=== PATIENT | female | born 1940 ===

== ENCOUNTER 2018-06-27 11:02 | Inpatient (IN) ==
[2018-06-27] MEDS ORDERED: Sod Chloride 0.9% Inj 1,000 ML IV.CONT SCH (13:00)
[2018-06-27] MEDS ORDERED: Morphine Inj 4 MG/ML Vial IV.PUSH ONE (13:00)
[2018-06-27] MEDS ORDERED: Aluminum/Magnesium/Simethacone Susp 30 ML UDC PO ONE (13:00)
[2018-06-27] MEDS ORDERED: Famotidine PF Inj 20 MG/2 ML Vial IV.PUSH ONE (13:00)
--- NOTE | 2018-06-27 13:07 | ED ---
HPI General Chief Complaint: Abdominal Pain Stated Complaint: ABD PAIN Source: patient Mode of arrival: ambulatory Limitations: no limitations History of Present Illness HPI narrative: The patient is a 77-year-old female who presents to the emergency department for abdominal pain. The patient developed abdominal pain last night after eating tomato sauce. The abdominal pain is located epigastrium , migrates the right upper quadrant, associated with nausea, vomiting, and pain. She denies any diarrhea. The patient's previous abdominal surgeries include hysterectomy and section. She denies any fever, chills, or sweats. The patient denies any acute chest pain, shortness of breath, or new cough. Symptoms are moderate, exacerbated after eating tomato sauce, and there are currently no alleviating factors. The patient denies any dysuria, frequency , or urgency. MD complaint: abdominal pain Onset (ago): hour(s) Pain Consistency: constant Location: epigastric Severity: moderate Severity scale (1-10): 7 Quality: stabbing and burning Radiation: RUQ Migration to: RUQ Relieving factors: eating Exacerbating factors: nothing Associated symptoms: nausea and vomiting Related Data Patient : No Home Medications Medication Instructions Recorded Confirmed amlodipine 10 mg PO DAILY 06/27/18 06/27/18 lisinopril 10 mg PO DAILY 06/27/18 06/27/18 pantoprazole [Protonix] 40 mg PO DAILY 06/27/18 06/27/18 pravastatin 40 mg PO DAILY 06/27/18 06/27/18 Allergies Allergy/AdvReac Type Severity Reaction Status Date / Time No Known Allergies Allergy Unverified 06/27/18 11:56 Review of Systems ROS: all other systems reviewed are negative [facility] Medical History Medical History Hx of hysterectomy (Acute) History of uterine fibroid (Acute) History of high cholesterol (Acute) Hx of gastroesophageal reflux (GERD) (Acute) Hx of primary hypertension (Acute) Social History Social History Substance History: No History of Abuse Second Hand Smoke Exposure: No Smoking Status: Never smoker How Often Do You Have a Drink Containing Alcohol: Never Recent Travel in [facility] within the Last 8 Weeks: No Recent Out of Country Travel within the Last 8 Weeks: No Immunization History Tetanus Immunization: Unsure Hx Influenza Vaccine This Season: No Exam Narrative Exam Narrative: GENERAL: Awake, alert, pleasant 77-year-old female who appears her stated age and is in no acute respiratory distress. SKIN: Focused skin assessment warm/dry. HEAD: Atraumatic. Normocephalic. EYES: No injection or drainage per ENT: No nasal bleeding or discharge. Mucous membranes pink and moist. NECK: Trachea midline. No JVD. CARDIOVASCULAR: Regular rate and rhythm. No murmur appreciated. RESPIRATORY: No accessory muscle use. Clear to auscultation. Breath sounds equal bilaterally. GASTROINTESTINAL: Abdomen soft, epigastric tenderness and right upper quadrant abdominal tenderness. No guarding or rigidity. MUSCULOSKELETAL: No obvious deformities. No clubbing. No cyanosis. No edema. NEUROLOGICAL: Awake and alert. No obvious cranial nerve deficits. Motor grossly within normal limits. Normal speech. PSYCHIATRIC: Appropriate mood and affect; insight and judgment normal. Course Initial Documented Vital Signs Temperature 98.6 F 06/27/18 11:53 Pulse Rate 80 06/27/18 11:53 Respiratory Rate 16 06/27/18 11:53 Blood Pressure 162/77 H 06/27/18 11:53 Pulse Oximetry 93 L 06/27/18 11:53 Last Documented Vital Signs Temperature 98.6 F 06/27/18 11:53 Pulse Rate 82 06/27/18 13:36 Respiratory Rate 16 06/27/18 13:36 Blood Pressure 137/70 06/27/18 13:36 Pulse Oximetry 98 06/27/18 13:36 Medical Decision Making MDM Narrative Medical decision making narrative: IV was established, labs are drawn and sent, and the patient was placed on cardiac telemetry monitoring and continuous pulse oximetry monitoring. The patient was administered morphine, Zofran, Pepcid, GI cocktail, placed on IV fluids. Ultrasound of the gallbladder was ordered. The patient CBC, CMP, lipase are unremarkable. Lactic acid is within normal limits. The patient's ultrasound does reveal debris and a distended gallbladder concerning for gallbladder mass. The patient was reevaluated he continues to have right upper quadrant abdominal pain. I paged the on-call general surgeon, Dr. London. I discussed the patient with Dr. Juvenal Pereira, who states the patient can be admitted to the medical service with a routine consultation to Dr. London for evaluation. I discussed the findings with the patient, she continues to have pain, therefore, I believe it is reasonable for 23 hour observation for further evaluation. The common bile duct was slightly enlarged at 0.81, however, the patient is almost 79 and with normal LFTs and normal lipase I doubt stone passage. Medical Screen Exam Complete: Yes Emergency Medical Condition: Yes Differential Diagnosis Differential Diagnosis: Differential diagnosis includes gastritis, peptic ulcer disease, cholecystitis, choledocholithiasis, biliary colic, pancreatitis, GERD, esophageal spasm, atypical [place], perforated viscus. Lab Data Result diagrams: 06/27/18 13:00 06/27/18 13:00 Lab Results 06/27/18 06/27/18 06/27/18 Range/Units 13:00 13:00 13:00 CBC w Diff Auto diff final WBC 9.7 (4.0-11.0) th/mm3 RBC 4.80 (4.00-5.30) mil/mm3 Hgb 14.1 (11.6-15.3) gm/dL Hct 42.3 (35.0-46.0) % MCV 88.2 (80.0-100.0) fL MCH 29.4 (27.0-34.0) pg MCHC 33.3 (32.0-36.0) % RDW 14.7 (11.6-17.2) % Plt Count 356 (150-450) th/mm3 MPV 7.7 (7.0-11.0) fL Neut % (Auto) 91.2 H (16.0-70.0) % Lymph % (Auto) 7.3 L (9.0-44.0) % [place] % (Auto) 1.1 (0.0-8.0) % Eos % (Auto) 0.1 (0.0-4.0) % Baso % (Auto) 0.3 (0.0-2.0) % Neut # (Auto) 8.9 H (1.8-7.7) th/mm3 Lymph # (Auto) 0.7 L (1.0-4.8) th/mm3 [place] # (Auto) 0.1 (0.0-0.9) th/mm3 Eos # (Auto) 0.0 (0.0-0.4) th/mm3 Baso # (Auto) 0.0 (0.0-0.2) th/mm3 WBC Differential . Differential Comment . Sodium 139 (136-145) meq/L Potassium 3.6 (3.5-5.1) meq/L Chloride 106 (98-107) meq/L Carbon Dioxide 26.5 (21.0-32.0) meq/L Anion Gap 7 (5-15) meq/L BUN 18 (7-18) mg/dL Creatinine 0.73 (0.50-1.00) mg/dL Estimated GFR 77 L (>89) mL/min Random Glucose 149 H (74-106) mg/dL Lactic Acid (0.4-2.0) mmol/L Calcium 8.8 (8.5-10.1) mg/dL Total Bilirubin 0.6 (0.2-1.0) mg/dL AST 40 H (15-37) U/L ALT 32 (10-53) U/L Alkaline Phosphatase 111 (45-117) U/L Total Creatine Kinase 69 (26-192) U/L Troponin I 0.03 (0.02-0.05) ng/mL Total Protein 8.3 H (6.4-8.2) g/dL Albumin 4.0 (3.4-5.0) g/dL Lipase 78 (73-393) U/L Ur Collection Type Urine Color (Yellw/Straw) Urine Clarity (Clear) Urine pH (5.0-8.5) Ur Specific [place] (1.002-1.035) Urine Protein (Neg-Trace) mg/dL Urine Glucose (UA) (Negative) mg/dL Urine Ketones (Negative) mg/dL Urine Occult Blood (Negative) Urine Nitrate (Negative) Urine Bilirubin (Negative) Urine Urobilinogen (Less than 2) mg/dL Ur Leukocyte Esterase (Negative) Urine WBC (0-5) /hpf Ur Squamous Epith Cells (0-5) /hpf Ur Transition Epith Cell (None) /hpf Amorphous Sediment (None) /hpf Micro UA Comment Ur Microscopic Review Urine Culture Comments Urine Collection Time hours 06/27/18 06/27/18 Range/Units 13:10 13:10 CBC w Diff WBC (4.0-11.0) th/mm3 RBC (4.00-5.30) mil/mm3 Hgb (11.6-15.3) gm/dL Hct (35.0-46.0) % MCV (80.0-100.0) fL MCH (27.0-34.0) pg MCHC (32.0-36.0) % RDW (11.6-17.2) % Plt Count (150-450) th/mm3 MPV (7.0-11.0) fL Neut % (Auto) (16.0-70.0) % Lymph % (Auto) (9.0-44.0) % [place] % (Auto) (0.0-8.0) % Eos % (Auto) (0.0-4.0) % Baso % (Auto) (0.0-2.0) % Neut # (Auto) (1.8-7.7) th/mm3 Lymph # (Auto) (1.0-4.8) th/mm3 [place] # (Auto) (0.0-0.9) th/mm3 Eos # (Auto) (0.0-0.4) th/mm3 Baso # (Auto) (0.0-0.2) th/mm3 WBC Differential Differential Comment Sodium (136-145) meq/L Potassium (3.5-5.1) meq/L Chloride (98-107) meq/L Carbon Dioxide (21.0-32.0) meq/L Anion Gap (5-15) meq/L BUN (7-18) mg/dL Creatinine (0.50-1.00) mg/dL Estimated GFR (>89) mL/min Random Glucose (74-106) mg/dL Lactic Acid 1.8 (0.4-2.0) mmol/L Calcium (8.5-10.1) mg/dL Total Bilirubin (0.2-1.0) mg/dL AST (15-37) U/L ALT (10-53) U/L Alkaline Phosphatase (45-117) U/L Total Creatine Kinase (26-192) U/L Troponin I (0.02-0.05) ng/mL Total Protein (6.4-8.2) g/dL Albumin (3.4-5.0) g/dL Lipase (73-393) U/L Ur Collection Type Clean catch Urine Color Yellow (Yellw/Straw) Urine Clarity Slightly cloudy (Clear) Urine pH 7.5 (5.0-8.5) Ur Specific [place] 1.015 (1.002-1.035) Urine Protein Trace (Neg-Trace) mg/dL Urine Glucose (UA) Negative (Negative) mg/dL Urine Ketones 15 H (Negative) mg/dL Urine Occult Blood Negative (Negative) Urine Nitrate Negative (Negative) Urine Bilirubin Negative (Negative) Urine Urobilinogen 1.0 (Less than 2) mg/dL Ur Leukocyte Esterase Negative (Negative) Urine WBC 0-5 (0-5) /hpf Ur Squamous Epith Cells 6-10 H (0-5) /hpf Ur Transition Epith Cell 1-5 H (None) /hpf Amorphous Sediment Moderate H (None) /hpf Micro UA Comment Culture not ind Ur Microscopic Review Microscopic reviewed Urine Culture Comments Culture not ind Urine Collection Time 1320 hours Imaging Data Radiologist's impression: Gallbladder Ultrasound 06/27/18 13:00 CONCLUSION: 1. Markedly distended gallbladder with evidence of internal debris and thickening in the fundus. Gallbladder mass needs to be excluded. 2. Mildly dilated common bile duct 3. No other significant abnormality. Discharge Plan Discharge Disposition Patient Disposition: 30 Still Patient Discharge Condition Condition: Stable Discharge Details Diagnosis: Abdominal pain, acute, right upper quadrant Physicians Team ED Provider: Ray Love Primary Care Provider: Simran Zaragoza Rxs /Orders / Referrals /Forms Prescriptions: No Action pravastatin 40 mg Tablet 40 mg PO DAILY RF: 0 amlodipine 10 mg Tablet 10 mg PO DAILY RF: 0 pantoprazole [Protonix] 40 mg Tablet,Delayed Release (Dr/Ec) 40 mg PO DAILY RF: 0 lisinopril 10 mg Tablet 10 mg PO DAILY RF: 0 Discharge Interventions Interventions: Vital Signs Last Done: 06/27/18 13:36 Status ED Status: Pending Admission
[2018-06-27 13:20] LABS: Baso % (Auto) 0.3 % (0.0-2.0); Eos % (Auto) 0.1 % (0.0-4.0); Hematocrit 42.3 % (35.0-46.0); Hemoglobin 14.1 gm/dL (11.6-15.3); Lymph # (Auto) 0.7 th/mm3 (1.0-4.8); Lymph % (Auto) 7.3 % (9.0-44.0); Mean Corpuscular HGB Conc 33.3 % (32.0-36.0); Mean Corpuscular Hemoglobin 29.4 pg (27.0-34.0); Mean Corpuscular Volume 88.2 fL (80.0-100.0); Mean Platelet Volume 7.7 fL (7.0-11.0); Mono # (Auto) 0.1 th/mm3 (0.0-0.9); Mono % (Auto) 1.1 % (0.0-8.0); Neut # (Auto) 8.9 th/mm3 (1.8-7.7); Neut % (Auto) 91.2 % (16.0-70.0); Platelet Count 356 th/mm3 (150-450); Red Cell Distribution Width 14.7 % (11.6-17.2); White Blood Count 9.7 th/mm3 (4.0-11.0)
[2018-06-27 13:21] LABS: Bilirubin,Urine Negative (Negative); Clarity,Urine Slightly Cloudy (Clear); Color,Urine Yellow (Yellw/Straw); Glucose,Urine (UA) Negative (Negative); Leukocyte Esterase,Urine Negative (Negative); Nitrite,Urine Negative (Negative); PH,Urine 7.5 (5.0-8.5); Specific Gravity,Urine 1.015 (1.002-1.035)
[2018-06-27 13:28] LABS: Collection Time,Urine 1320 hours
[2018-06-27 13:30] LABS: Amorphous Sediment,Urine Moderate /hpf; WBC,Urine 0-5 /hpf (0-5)
[2018-06-27 13:31] LABS: Chloride 106 meq/L (98-107); Potassium 3.6 meq/L (3.5-5.1); Sodium 139 meq/L (136-145)
[2018-06-27 13:34] LABS: Calcium 8.8 mg/dL (8.5-10.1)
[2018-06-27 13:35] LABS: Anion Gap 7 meq/L (5-15); Blood Urea Nitrogen 18 mg/dL (7-18); Carbon Dioxide 26.5 meq/L (21.0-32.0); Glucose,Random 149 mg/dL (74-106); Lipase 78 U/L (73-393)
[2018-06-27 13:38] LABS: Alanine Aminotransferase 32 U/L (10-53); Aspartate Aminotransferase 40 U/L (15-37); Glomerular Filtration Rate 77 mL/min (>89)
[2018-06-27 13:39] LABS: Total Protein 8.3 g/dL (6.4-8.2)
[2018-06-27 13:41] LABS: Alkaline Phosphatase 111 U/L (45-117); Troponin I 0.03 ng/mL (0.02-0.05)
--- NOTE | 2018-06-27 14:26 | US ---
EXAM DATE: 06/27/2018 2:18 PM EDT AGE/SEX: 77 years / Female INDICATIONS: Right upper quadrant pain. CLINICAL DATA: This is the patient's initial encounter. Patient reports that signs and symptoms have been present for 1 day and indicates a pain score of 5/10. MEDICAL/SURGICAL HISTORY: Hypercholesterolemia. Gastroesophageal reflux disease. Hypertension . Fibroids. Hysterectomy. COMPARISON: No prior exams available for comparison. MEASUREMENTS: Liver:__ 13.9 cm. Common Bile Duct:__ 8mm. FINDINGS: Liver: Normal echotexture without focal lesion or ductal dilatation. Portal Vein: Hepatopedal flow seen in portal vein. Common Duct: Mildly dilated. Gallbladder: The gallbladder is markedly distended measuring 15.6 cm in length. There is evidence of internal debris within the gallbladder. There is focal debris and thickening of the gallbladder fund us. Pancreas: The visualized portions are within normal limits Right Kidney: Normal echotexture and cortical thickness. No mass or hydronephrosis. Other: CONCLUSION: 1. Markedly distended gallbladder with evidence of internal debris and thickening in the fundus. Gal lbladder mass needs to be excluded. 2. Mildly dilated common bile duct 3. No other significant abnormality. Electronically signed by: Robin Sanchez MD 06/27/2018 2:24 PM EDT
[2018-06-27] MEDS ORDERED: Ampicillin/Sulbactam Inj 1,500 MG in Sodium Chloride 0.9% Inj 100 ML IV.SIG ONE (14:43)
[2018-06-27] MEDS ORDERED: Acetaminophen 325 MG Tablet PO PRN (15:36)
[2018-06-27] MEDS ORDERED: Morphine Inj 4 MG/ML Vial IV.PUSH PRN (15:38)
--- NOTE | 2018-06-27 15:47 | P.HPIM ---
History of Present Illness Primary Care Physician: Simran Zaragoza MD Chief Complaint: Abdominal pain History of Present Illness: The patient is a 77-year-old female with a past medical history of hypertension and hyperlipidemia who is presenting to the hospital with abdominal pain. The patient said that she has some food containing tomato sauce yesterday and she developed epigastric pain. She rated it as a 10 out of 10 in severity at the time and she says it is currently a 6 out of 10. She said she did have accompanying nausea and vomiting. She said she also ate some chicken, rice and beans last night. She has not eaten anything today. She is still nauseous. She says she has had this before. She says this abdominal pain comes and goes. She has not really been following with a doctor for it. She is currently hungry and looking forward to eating something. She would like to go home soon. Review of Systems All other systems reviewed negative except as stated in HPI PMFSH - History History Provided By: Patient, Family Member - Medical History Medical History: Medical History (Last Updated 06/27/18 @ 12:48 by Rozina Faith RN) Hx of hysterectomy (Acute) History of uterine fibroid (Acute) History of high cholesterol (Acute) Hx of gastroesophageal reflux (GERD) (Acute) Hx of primary hypertension (Acute) - Surgical History Surgical History: Surgical History (Last Updated 06/27/18 @ 15:43 by Jeferson Ruiz DO) H/O section - Family History Family History: Family History (Last Updated 06/27/18 @ 15:43 by Jeferson Ruiz DO) Other Patient denies significant medical history - Social History I have reviewed the patient's Social History: Yes - Tobacco History Second Hand Smoke Exposure: No Smoking Status: Never smoker - Alcohol History How Often Do You Have a Drink Containing Alcohol: Never - Substance Use History Substance History: No History of Abuse - Travel History Recent Travel in the [place] Within the Last 8 Weeks: No Recent Travel Out of the Country Within the Last 8 Weeks: No - Immunization History Tetanus Immunization: Unsure Hx Influenza Vaccine This Season: No Medications and Allergies Active Medications: Active Medications Acetaminophen (Tylenol) 650 mg PO Q4H PRN PRN Reason: Temp > 100.4 Amlodipine Besylate (Norvasc) 10 mg PO DAILY [place] Sodium Chloride (Ns Inj) 1,000 mls @ 125 mls/hr IV.CONT .Q8H [facility] Stop: 06/27/18 20:59 Last Admin: 06/27/18 13:21 Dose: 125 mls/hr Sodium Chloride (Ns Inj) 1,000 mls @ 100 mls/hr IV.CONT .Q10H [facility] Lisinopril (Prinivil) 10 mg PO DAILY [facility] Morphine Sulfate (Morphine Inj) 4 mg IV.PUSH Q4H PRN PRN Reason: BREAKTHROUGH PAIN Ondansetron HCl (Zofran Inj) 4 mg IV.PUSH Q6H PRN PRN Reason: NAUSEA OR VOMITING Oxycodone HCl (Roxicodone) 5 mg PO Q4H PRN PRN Reason: pain 3-10 Pantoprazole Sodium (Protonix) 40 mg PO DAILY [facility] Pravastatin Sodium (Pravachol) 40 mg PO DAILY [facility] Senna/Docusate Sodium (Corine-Colace) 1 tab PO BID [facility] Sodium Chloride (Ns Flush) 2 ml IV.FLUSH PRN PRN PRN Reason: FLUSH AFTER USING IV ACCESS Allergies Allergy/AdvReac Type Severity Reaction Status Date / Time No Known Allergies Allergy Unverified 06/27/18 11:56 Home Medications Medication Instructions Recorded Confirmed Type amlodipine 10 mg PO DAILY 06/27/18 06/27/18 History lisinopril 10 mg PO DAILY 06/27/18 06/27/18 History pantoprazole [Protonix] 40 mg PO DAILY 06/27/18 06/27/18 History pravastatin 40 mg PO DAILY 06/27/18 06/27/18 History Exam Vital signs: Vital Signs 06/27/18 11:53 06/27/18 13:36 Temperature 98.6 F Pulse Rate 80 82 Respiratory Rate 16 16 Blood Pressure 162/77 H 137/70 Pulse Oximetry 93 L 98 Intake & Output 06/26/18 06/27/18 06/27/18 18:59 06:59 18:59 Weight 74 kg Narrative: GENERAL: No distress. SKIN: Focused skin assessment warm/dry. HEAD: Atraumatic. Normocephalic. EYES: No injection or drainage per ENT: No nasal bleeding or discharge. Mucous membranes pink and moist. NECK: Trachea midline. No JVD. CARDIOVASCULAR: Regular rate and rhythm. No murmur appreciated. RESPIRATORY: No accessory muscle use. Clear to auscultation. Breath sounds equal bilaterally. GASTROINTESTINAL: Abdomen soft, epigastric tenderness and right upper quadrant abdominal tenderness. No guarding or rigidity. MUSCULOSKELETAL: No obvious deformities. No clubbing. No cyanosis. No edema. NEUROLOGICAL: Awake and alert. No obvious cranial nerve deficits. Motor grossly within normal limits. Normal speech. PSYCHIATRIC: Appropriate mood and affect; insight and judgment normal. Results - Labs CBC & Chem 7: 06/27/18 13:00 06/27/18 13:00 Labs: Short CBC 06/27/18 Range/Units 13:00 WBC 9.7 (4.0-11.0) th/mm3 Hgb 14.1 (11.6-15.3) gm/dL Hct 42.3 (35.0-46.0) % Plt Count 356 (150-450) th/mm3 BMP 06/27/18 13:00 Sodium 139 Potassium 3.6 Chloride 106 Carbon Dioxide 26.5 BUN 18 Creatinine 0.73 Calcium 8.8 Cardiac Enzymes 06/27/18 Range/Units 13:00 Total Creatine Kinase 69 (26-192) U/L Troponin I 0.03 (0.02-0.05) ng/mL Liver Function 06/27/18 Range/Units 13:00 Total Bilirubin 0.6 (0.2-1.0) mg/dL AST 40 H (15-37) U/L ALT 32 (10-53) U/L Alkaline Phosphatase 111 (45-117) U/L Albumin 4.0 (3.4-5.0) g/dL Urine 06/27/18 Range/Units 13:10 Urine Color Yellow (Yellw/Straw) Urine Clarity Slightly cloudy (Clear) Urine pH 7.5 (5.0-8.5) Ur Specific [place] 1.015 (1.002-1.035) Urine Protein Trace (Neg-Trace) mg/dL Urine Glucose (UA) Negative (Negative) mg/dL - Imaging Impressions Gallbladder Ultrasound 06/27/18 13:00 CONCLUSION: 1. Markedly distended gallbladder with evidence of internal debris and thickening in the fundus. Gallbladder mass needs to be excluded. 2. Mildly dilated common bile duct 3. No other significant abnormality. Caprini VTE Risk Assessment Caprini VTE Risk Assessment: Moderate/High Risk (score >= 2) Caprini Risk Assessment Model: Point Value = 1 Point Value = 2 Point Value = 3 Point Value = 5 Age 41-60 Minor surgery BMI > 25 kg/m2 Swollen legs Varicose veins or History of unexplained or recurrent spontaneous Oral contraceptives or hormone replacement Sepsis (< 1 month) Serious lung disease, including pneumonia (< 1 month) Abnormal pulmonary function Acute myocardial infarction Congestive heart failure (< 1 month) History of inflammatory bowel disease Medical patient at bed rest Age 61-74 Arthroscopic surgery Major open surgery (> 45 min) Laparoscopic surgery (> 45 min) Malignancy Confined to bed (> 72 hours) Immobilizing plaster cast Central venous access Age >= 75 History of VTE Family history of VTE Factor V Leiden Prothrombin [id number] Lupus anticoagulant Anticardiolipin antibodies Elevated serum homocysteine Heparin-induced thrombocytopenia Other congenital or acquired thrombophilia Stroke (< 1 month) Elective arthroplasty Hip, pelvis, or leg fracture Acute spinal cord injury (< 1 month) Prophylaxis Regimen: Total Risk Factor Score Risk Level Prophylaxis Regimen 0-1 Low Early ambulation 2 Moderate Order ONE of the following: *Sequential Compression Device (SCD) *Heparin 5000 units SQ BID 3-4 Higher Order ONE of the following medications: *Heparin 5000 units SQ TID *Enoxaparin/Lovenox 40 mg SQ daily (WT < 150 kg, CrCl > 30 mL/min) *Enoxaparin/Lovenox 30 mg SQ daily (WT < 150 kg, CrCl > 10-29 mL/min) *Enoxaparin/Lovenox 30 mg SQ BID (WT < 150 kg, CrCl > 30 mL/min) AND/OR *Sequential Compression Device (SCD) 5 or more Highest Order ONE of the following medications: *Heparin 5000 units SQ TID (Preferred with Epidurals) *Enoxaparin/Lovenox 40 mg SQ daily (WT < 150 kg, CrCl > 30 mL/min) *Enoxaparin/Lovenox 30 mg SQ daily (WT < 150 kg, CrCl > 10-29 mL/min) *Enoxaparin/Lovenox 30 mg SQ BID (WT < 150 kg, CrCl > 30 mL/min) AND *Sequential Compression Device (SCD) Assessment and Plan - Plan Abdominal pain Imaging indicative of distended gallbladder, mass needs to be excluded. -surgical consult pending. -pain control with a bowel regimen. -antiemetics as needed. -continue IV Unasyn. -NPO with IVFs for now. HTN Blood pressure slightly elevated. -resume home meds. -pain control. Hyperglycemia Likely a stress reaction. -check an A1c. PPx: SCDs
--- NOTE | 2018-06-27 16:20 | P.CONGS ---
[facility] Gen Surgery Consult Note Consult date: 06/27/18 Reason for consult: abdominal pain Requesting physician: Ray Love Narrative: This is a 77 year old female with a past medical history of GERD, hypertension, dyslipidemia and uterine fibroids who presented to the ED today with complaints of abdominal pain with associated nausea and vomiting. The patient denies any chills or fevers. The patient reports that she last ate chicken, rice and beans about 2100 last night and shortly after that the pain developed. She has not had anything to eat or drink today. Her laboratory work is unremarkable except for a mildly elevated AST. An US for the gallbladder was obtained which shows a distended gallbladder with a mildly dilated common bile duct. Patient denies use of oral anticoagulations. A General Surgery consultation has been requested. Review of Systems All other systems reviewed negative except as stated in [facility] - History History Provided By: Patient, Family Member - Medical History Medical History: Medical History (Last Reviewed 06/27/18 @ 16:15 by CHRISS Beaulieu) Hx of hysterectomy (Acute) History of uterine fibroid (Acute) History of high cholesterol (Acute) Hx of gastroesophageal reflux (GERD) (Acute) Hx of primary hypertension (Acute) - Surgical History Surgical History: Surgical History (Last Reviewed 06/27/18 @ 16:15 by CHRISS Beaulieu) H/O section - Family History Family History: Family History (Last Updated 06/27/18 @ 15:43 by Jeferson Ruiz DO) Other Patient denies significant medical history - Tobacco History Second Hand Smoke Exposure: No Smoking Status: Never smoker - Alcohol History How Often Do You Have a Drink Containing Alcohol: Never - Substance Use History Substance History: No History of Abuse - Travel History Recent Travel in the [place] Within the Last 8 Weeks: No Recent Travel Out of the Country Within the Last 8 Weeks: No - Immunization History Tetanus Immunization: Unsure Hx Influenza Vaccine This Season: No Medications and Allergies Allergies Allergy/AdvReac Type Severity Reaction Status Date / Time No Known Allergies Allergy Verified 06/27/18 20:32 Home Medications Medication Instructions Recorded Confirmed Type Advil 200 mg PO PRN PRN 06/27/18 06/27/18 History Aspir-81 1 mg PO DAILY 06/27/18 06/27/18 History amlodipine 10 mg PO DAILY 06/27/18 06/27/18 History lisinopril 10 mg PO DAILY 06/27/18 06/27/18 History pantoprazole [Protonix] 40 mg PO DAILY 06/27/18 06/27/18 History pravastatin 40 mg PO DAILY 06/27/18 06/27/18 History Active Medications: Active Medications Acetaminophen (Tylenol) 650 mg PO Q4H PRN PRN Reason: Temp > 100.4 Amlodipine Besylate (Norvasc) 10 mg PO DAILY [facility] Sodium Chloride (Ns Inj) 1,000 mls @ 100 mls/hr IV.CONT .Q10H [facility] Ampicillin Sodium/Sulbactam (Sodium 3 gm/ Sodium Chloride) 100 mls @ 200 mls/ hr IV.SIG Q6H [facility] Lisinopril (Prinivil) 10 mg PO DAILY [facility] Morphine Sulfate (Morphine Inj) 4 mg IV.PUSH Q4H PRN PRN Reason: BREAKTHROUGH PAIN Ondansetron HCl (Zofran Inj) 4 mg IV.PUSH Q6H PRN PRN Reason: NAUSEA OR VOMITING Oxycodone HCl (Roxicodone) 5 mg PO Q4H PRN PRN Reason: pain 3-10 Pantoprazole Sodium (Protonix) 40 mg PO DAILY [facility] Pravastatin Sodium (Pravachol) 40 mg PO DAILY [facility] Senna/Docusate Sodium (Corine-Colace) 1 tab PO BID [facility] Sodium Chloride (Ns Flush) 2 ml IV.FLUSH PRN PRN PRN Reason: FLUSH AFTER USING IV ACCESS Exam Vital signs: Vital Signs 06/27/18 11:53 06/27/18 13:36 Temperature 98.6 F Pulse Rate 80 82 Respiratory Rate 16 16 Blood Pressure 162/77 H 137/70 Pulse Oximetry 93 L 98 Intake & Output 06/26/18 06/27/18 06/27/18 18:59 06:59 18:59 Intake Total 100 / 100 Balance 100 / 100 Weight 74 kg Intake: IV 100 / 100 Unasyn Inj 1,500 MG In NS Inj 100 / 100 100 ML @ 200 mls/hr IV.SIG ONCE ONE Rx#:[id number] Narrative: GENERAL: Very pleasant 77 year old female resting in bed in no acute distress visiting with family members. SKIN: Warm and dry. HEAD: Atraumatic. Normocephalic. EYES: Pupils equal and round. No scleral icterus. No injection or drainage. ENT: No nasal bleeding or discharge. Mucous membranes pink and moist. NECK: Trachea midline. CARDIOVASCULAR: Regular rate and rhythm. RESPIRATORY: No accessory muscle use. Clear to auscultation. Breath sounds equal bilaterally. GASTROINTESTINAL: Abdomen soft, nondistended. RUQ tenderness with palpation. Well healed midline incision and low transverse incision. MUSCULOSKELETAL: Extremities without clubbing, cyanosis, or edema. No obvious deformities. NEUROLOGICAL: Awake and alert. No obvious cranial nerve deficits. Motor grossly within normal limits. Five out of 5 muscle strength in the arms and legs. Normal speech. PSYCHIATRIC: Appropriate mood and affect; insight and judgment normal. Results - Labs 06/29/18 06:50 06/29/18 06:50 Laboratory Results CBC w Diff Auto diff final 06/27/18 13:00 WBC 9.7 th/mm3 (4.0-11.0) 06/27/18 13:00 RBC 4.80 mil/mm3 (4.00-5.30) 06/27/18 13:00 Hgb 14.1 gm/dL (11.6-15.3) 06/27/18 13:00 Hct 42.3 % (35.0-46.0) 06/27/18 13:00 MCV 88.2 fL (80.0-100.0) 06/27/18 13:00 MCH 29.4 pg (27.0-34.0) 06/27/18 13:00 MCHC 33.3 % (32.0-36.0) 06/27/18 13:00 RDW 14.7 % (11.6-17.2) 06/27/18 13:00 Plt Count 356 th/mm3 (150-450) 06/27/18 13:00 MPV 7.7 fL (7.0-11.0) 06/27/18 13:00 Neut % (Auto) 91.2 % (16.0-70.0) H 06/27/18 13:00 Lymph % (Auto) 7.3 % (9.0-44.0) L 06/27/18 13:00 [place] % (Auto) 1.1 % (0.0-8.0) 06/27/18 13:00 Eos % (Auto) 0.1 % (0.0-4.0) 06/27/18 13:00 Baso % (Auto) 0.3 % (0.0-2.0) 06/27/18 13:00 Neut # (Auto) 8.9 th/mm3 (1.8-7.7) H 06/27/18 13:00 Lymph # (Auto) 0.7 th/mm3 (1.0-4.8) L 06/27/18 13:00 [place] # (Auto) 0.1 th/mm3 (0.0-0.9) 06/27/18 13:00 Eos # (Auto) 0.0 th/mm3 (0.0-0.4) 06/27/18 13:00 Baso # (Auto) 0.0 th/mm3 (0.0-0.2) 06/27/18 13:00 WBC Differential . 06/27/18 13:00 Differential Comment . 06/27/18 13:00 Sodium 139 meq/L (136-145) 06/27/18 13:00 Potassium 3.6 meq/L (3.5-5.1) 06/27/18 13:00 Chloride 106 meq/L (98-107) 06/27/18 13:00 Carbon Dioxide 26.5 meq/L (21.0-32.0) 06/27/18 13:00 Anion Gap 7 meq/L (5-15) 06/27/18 13:00 BUN 18 mg/dL (7-18) 06/27/18 13:00 Creatinine 0.73 mg/dL (0.50-1.00) 06/27/18 13:00 Estimated GFR 77 mL/min (>89) L 06/27/18 13:00 Random Glucose 149 mg/dL (74-106) H 06/27/18 13:00 Lactic Acid 1.8 mmol/L (0.4-2.0) 06/27/18 13:10 Calcium 8.8 mg/dL (8.5-10.1) 06/27/18 13:00 Total Bilirubin 0.6 mg/dL (0.2-1.0) 06/27/18 13:00 AST 40 U/L (15-37) H 06/27/18 13:00 ALT 32 U/L (10-53) 06/27/18 13:00 Alkaline Phosphatase 111 U/L (45-117) 06/27/18 13:00 Total Creatine Kinase 69 U/L (26-192) 06/27/18 13:00 Troponin I 0.03 ng/mL (0.02-0.05) 06/27/18 13:00 Total Protein 8.3 g/dL (6.4-8.2) H 06/27/18 13:00 Albumin 4.0 g/dL (3.4-5.0) 06/27/18 13:00 Lipase 78 U/L (73-393) 06/27/18 13:00 Ur Collection Type Clean catch 06/27/18 13:10 Urine Color Yellow (Yellw/Straw) 06/27/18 13:10 Urine Clarity Slightly cloudy (Clear) 06/27/18 13:10 Urine pH 7.5 (5.0-8.5) 06/27/18 13:10 Ur Specific [place] 1.015 (1.002-1.035) 06/27/18 13:10 Urine Protein Trace mg/dL (Neg-Trace) 06/27/18 13:10 Urine Glucose (UA) Negative mg/dL (Negative) 06/27/18 13:10 Urine Ketones 15 mg/dL (Negative) H 06/27/18 13:10 Urine Occult Blood Negative (Negative) 06/27/18 13:10 Urine Nitrate Negative (Negative) 06/27/18 13:10 Urine Bilirubin Negative (Negative) 06/27/18 13:10 Urine Urobilinogen 1.0 mg/dL (Less than 2) 06/27/18 13:10 Ur Leukocyte Esterase Negative (Negative) 06/27/18 13:10 Urine WBC 0-5 /hpf (0-5) 06/27/18 13:10 Ur Squamous Epith Cells 6-10 /hpf (0-5) H 06/27/18 13:10 Ur Transition Epith Cell 1-5 /hpf (None) H 06/27/18 13:10 Amorphous Sediment Moderate /hpf (None) H 06/27/18 13:10 Micro UA Comment Culture not ind 06/27/18 13:10 Ur Microscopic Review Microscopic reviewed 06/27/18 13:10 Urine Culture Comments Culture not ind 06/27/18 13:10 Urine Collection Time 1320 hours 06/27/18 13:10 Impressions Gallbladder Ultrasound 06/27/18 13:00 CONCLUSION: 1. Markedly distended gallbladder with evidence of internal debris and thickening in the fundus. Gallbladder mass needs to be excluded. 2. Mildly dilated common bile duct 3. No other significant abnormality. - Imaging US - abdomen: report reviewed Assessment and Plan - Assessment (1) Abdominal pain, acute, right upper quadrant Code(s): R10.11 - Right upper quadrant pain Status: Inactive Plan: 77 year old female with RUQ pain; cholecystitis -Continue Unasyn -IVF -Pain control -Plan for laparoscopic cholecystectomy; possible open procedure; possible intraoperative cholangiogram this evening -Obtain consents -OR notified -Thank you for this consult; We will continue to follow - Plan Discussed Condition With: Dr. London MsFavian Ward+ many family members at the bedside - Attending Attestation patient seen at bedside abdominal pain acute cholecysititis plan for lap kenny discussed with anrp patient and saff The exam, history, and the medical decision-making described in the above note were completed with the assistance of the mid-level provider. I reviewed and agree with the findings presented. I attest that I had a [id number] encounter with the patient on the same day, and personally performed and documented my assessment and findings in the medical record.
[2018-06-27] MEDS: Sod Chloride 0.9% Inj 1,000 ML IV.CONT SCH (17:23)
[2018-06-27] MEDS ORDERED: Bupivacaine/Epinephrine PF Inj 0.5% 30 ML Vial ONE (19:25)
[2018-06-27] MEDS ORDERED: fentaNYL Citrate Inj 100 MCG/2 ML Ampul ONE (19:48)
[2018-06-27] MEDS ORDERED: Ampicillin/Sulbactam 3 GM Vial ONE (20:07)
--- NOTE | 2018-06-27 20:15 | P.OP ---
- Preoperative Diagnosis (1) Biliary colic - Postoperative Diagnosis (1) Biliary colic Date of procedure: 06/27/18 Anesthesia: GETA Surgeon: Geo London MD Estimated blood loss (mL): 5 Pathology: other (gallbladder) Operation and Findings: distended inflamed gallbladder
[2018-06-27] MEDS ORDERED: Lidocaine PF 1% Inj 5 ML Syringe INFILTRATN ONE (20:33)
[2018-06-27] MEDS ORDERED: Neostigmine Inj 5 MG/5 ML Syringe IV.PUSH ONE (20:33)
[2018-06-27] MEDS ORDERED: Famotidine PF Inj 20 MG/2 ML Vial ONE (21:48)
[2018-06-27 22:10] LABS: Hemoglobin A1c 6.2 % (4.3-6.0)
--- NOTE | 2018-06-27 22:16 | MP ---
cc: Geo London MD DATE OF OPERATION: 06/27/2018 PREOPERATIVE DIAGNOSIS: Symptomatic cholelithiasis with acute cholecystitis. POSTOPERATIVE DIAGNOSIS: Symptomatic cholelithiasis with acute cholecystitis. PROCEDURE PERFORMED: Laparoscopic cholecystectomy. SURGEON: Geo London MD WIRE STITCHER OPERATOR: See OR sheet. ANESTHESIA: GETA. IV FLUIDS: See anesthesia sheet. ESTIMATED BLOOD LOSS: 10 mL. DRAINS: None. SPECIMENS: None. WOUND CLASSIFICATION: Clean/contaminated. SPECIMENS: Gallbladder. COMPLICATIONS: None. FINDINGS: Distended gallbladder over 380 mL of bile containing gallbladder. Multiple very large gallstones. PATHOLOGY: Gallbladder sent for pathology. INDICATION: The patient is a 77-year-old female who presents with acute onset of abdominal pain. She had an ultrasound showing thickened gallbladder wall with gallstones and debris; therefore, decision was made for operative intervention including laparoscopic cholecystectomy. DETAILS OF PROCEDURE: The patient was taken to the operating suite, placed in supine position. He was prepped and draped in the usual sterile fashion after induction of general endotracheal anesthesia. A brief time out was done stating correct patient, procedure, surgical site, and we were all in agreement with this. Attention was directed to the umbilicus where local anesthetic was injected. Stab nayana incision made with an 11 blade. A Visiport 5 mm Optiview trocar was used to enter the abdomen safely. On cursory inspection, no evidence of injury. Small umbilical hernia containing some adhesion just inferior to the port site. Abdomen was insufflated to 15 mm of pneumoperitoneum. Ports were placed, one 12 mm epigastric, followed by two 5 mm right subcostal ports. The patient was placed in reverse Trendelenburg on the left. The gallbladder was identified and noted to be significantly distended, somewhat edematous. Endo needle was used to decompress gallbladder with over 300 mL of bile aspirated. Palpation of multiple large gallstones as well. The fundus was grasped and retracted cephalad. Cystic duct and cystic artery were dissected in the usual manner. Two clips were placed proximally in cystic artery and one distal. Endo Emanuel used to transect this. Two clips were placed proximal on the cystic duct and 1 distal. Endo Emanuel used to transect this. Smaller bleeding point was clipped with a 5 mm clip. Gallbladder was removed from gallbladder fossa with electro Bovie cautery. Mild bleeding. Hemostasis obtained with electro Bovie cautery as well as Wily. The gallbladder was removed and placed in the Endo Catch pouch and removed from the epigastric incision. The pneumoperitoneum was removed. The ports were removed. The epigastric fascia was closed with 0 Vicryl, followed by 4-0 Monocryl to all skin incision port sites. Sterile dressings were placed, including Mastisol and Steri-Strips. No complications. All lap and instrument counts were correct at the end of the procedure. The patient was extubated and taken to PACU. MD HINA Murillo/adolfo , 09:23 PM , 09:32 PM
[2018-06-27] MEDS: Senna/Docusate Sodium 8.6/50 MG Tablet PO SCH (22:29)
[2018-06-27] MEDS: Ampicillin/Sulbactam Inj 3 GM in Sodium Chloride 0.9% Inj 100 ML IV.SIG SCH (22:30)
[2018-06-28] MEDS: Sod Chloride 0.9% Inj 1,000 ML IV.CONT SCH ×3 (01:11→14:37)
[2018-06-28] MEDS: Ampicillin/Sulbactam Inj 3 GM in Sodium Chloride 0.9% Inj 100 ML IV.SIG SCH ×4 (02:03→21:56)
[2018-06-28 06:38] LABS: Baso % (Auto) 0.1 % (0.0-2.0); Eos % (Auto) 0.1 % (0.0-4.0); Hemoglobin 11.6 gm/dL (11.6-15.3); Lymph # (Auto) 0.5 th/mm3 (1.0-4.8); Lymph % (Auto) 5.2 % (9.0-44.0); Mean Corpuscular Hemoglobin 29.1 pg (27.0-34.0); Mean Corpuscular Volume 88.2 fL (80.0-100.0); Mono # (Auto) 0.3 th/mm3 (0.0-0.9); Mono % (Auto) 3.1 % (0.0-8.0); Neut # (Auto) 9.7 th/mm3 (1.8-7.7); Neut % (Auto) 91.5 % (16.0-70.0); Platelet Count 277 th/mm3 (150-450); Red Blood Count 3.97 mil/mm3 (4.00-5.30); Red Cell Distribution Width 14.7 % (11.6-17.2); White Blood Count 10.5 th/mm3 (4.0-11.0)
[2018-06-28 06:55] LABS: Chloride 110 meq/L (98-107); Potassium 3.8 meq/L (3.5-5.1); Sodium 143 meq/L (136-145)
[2018-06-28 07:11] LABS: Alanine Aminotransferase 890 U/L (10-53); Albumin 2.8 g/dL (3.4-5.0); Alkaline Phosphatase 145 U/L (45-117); Anion Gap 9 meq/L (5-15); Aspartate Aminotransferase 832 U/L (15-37); Blood Urea Nitrogen 14 mg/dL (7-18); Calcium 7.7 mg/dL (8.5-10.1); Carbon Dioxide 24.5 meq/L (21.0-32.0); Glomerular Filtration Rate 85 mL/min (>89); Glucose,Random 144 mg/dL (74-106); Lipase 50 U/L (73-393)
[2018-06-28] MEDS: Senna/Docusate Sodium 8.6/50 MG Tablet PO SCH ×2 (09:07→21:53)
[2018-06-28] MEDS: Lisinopril 10 MG Tablet PO SCH (09:07)
[2018-06-28] MEDS: amLODIPine 10 MG Tablet PO SCH (09:07)
--- NOTE | 2018-06-28 10:10 | P.PNGS ---
Subjective Interval history: Resting in bed No issues overnight Physical Exam Vital signs: Vital Signs 06/27/18 11:53 06/27/18 13:36 06/27/18 16:49 Temperature 98.6 F 98.8 F Pulse Rate 80 82 106 H Respiratory Rate 16 16 20 Blood Pressure 162/77 H 137/70 138/66 Pulse Oximetry 93 L 98 93 L 06/27/18 19:40 06/27/18 20:00 06/27/18 21:30 Temperature 98.5 F 98.5 F 99 F Pulse Rate 97 H 97 H 85 Respiratory Rate 16 16 12 Blood Pressure 124/59 L 124/59 L 135/68 Pulse Oximetry 93 L 93 L 93 L 06/27/18 22:01 06/27/18 22:02 06/27/18 22:12 Temperature Pulse Rate 79 69 Respiratory Rate 16 16 Blood Pressure 132/65 113/59 L Pulse Oximetry 94 L 95 95 06/27/18 22:20 06/28/18 00:00 06/28/18 08:00 Temperature 99.1 F 98.4 F 98.6 F Pulse Rate 73 67 68 Respiratory Rate 16 16 18 Blood Pressure 110/65 120/57 L 123/59 L Pulse Oximetry 96 93 L 93 L Intake & Output 06/27/18 06/28/18 06/28/18 18:59 06:59 18:59 Intake Total 100 / 100 3900 / 3900 1100 / 1100 Output Total 10 10 Balance 100 / 100 3890 / 3890 1100 / 1100 Weight 74.5 kg 74.5 kg Intake: IV 100 / 100 2900 / 2900 1100 / 1100 LR 1000 mL Inj 1,000 ML @ 0 mls 800 / 800 /hr .ROUTE .STK-MED ONE Rx#: [id number] NS Inj 1,000 ML @ 100 mls/hr IV 1999 / 1999 .CONT .Q10H [facility] Rx#:[id number] Unasyn Inj 1,500 MG In NS Inj 100 / 100 100 ML @ 200 mls/hr IV.SIG ONCE ONE Rx#:[id number] Unasyn Inj 3 GM In NS Inj 100 100 / 100 100 / 100 ML @ 200 mls/hr IV.SIG Q6H [facility] Rx#:[id number] Anesthesia Amount 900 / 900 Other 100 / 100 Output: Estimated Blood Loss 10 10 Other: # Voids 1 2 Date of Last Bowel Movement 06/26/18 Weight On Admission 74.5 kg Narrative: Alert and awakening Abd: lap sites c/d/i; mildly tender to palpation; Steri strips in place Assessment and Plan - Attending Attestation patient seen at bedside doing better labs up will recheck in am likely d/c tomorrow The exam, history, and the medical decision-making described in the above note were completed with the assistance of the mid-level provider. I reviewed and agree with the findings presented. I attest that I had a [id number] encounter with the patient on the same day, and personally performed and documented my assessment and findings in the medical record.
--- NOTE | 2018-06-28 11:42 | ECG ---
Date Performed: 06/27/2018 Time Performed: 19:57:40 PTAGE: 77 years EKG: Sinus rhythm MARKED LEFT AXIS DEVIATION ABNORMAL ECG NO PREVIOUS TRACING DOCTOR: Michael Cabezas Interpretating Date/Time 06/28/2018 11:41:36
--- NOTE | 2018-06-28 12:33 | P.PNIM ---
Subjective Interval history: The patient was feeling well following the procedure. She had minimal abdominal tenderness. She tolerated some juice as this morning. She was wondering if she could get a regular diet. Family at the bedside. Physical Exam Vital signs: Vital Signs 06/27/18 13:36 06/27/18 16:49 06/27/18 19:40 Temperature 98.8 F 98.5 F Pulse Rate 82 106 H 97 H Respiratory Rate 16 20 16 Blood Pressure 137/70 138/66 124/59 L Pulse Oximetry 98 93 L 93 L 06/27/18 20:00 06/27/18 21:30 06/27/18 22:01 Temperature 98.5 F 99 F Pulse Rate 97 H 85 79 Respiratory Rate 16 12 16 Blood Pressure 124/59 L 135/68 132/65 Pulse Oximetry 93 L 93 L 94 L 06/27/18 22:02 06/27/18 22:12 06/27/18 22:20 Temperature 99.1 F Pulse Rate 69 73 Respiratory Rate 16 16 Blood Pressure 113/59 L 110/65 Pulse Oximetry 95 95 96 06/28/18 00:00 06/28/18 08:00 Temperature 98.4 F 98.6 F Pulse Rate 67 68 Respiratory Rate 16 18 Blood Pressure 120/57 L 123/59 L Pulse Oximetry 93 L 93 L Intake & Output 06/27/18 06/28/18 06/28/18 18:59 06:59 18:59 Intake Total 100 / 100 3900 / 3900 1100 / 1100 Output Total 10 / 10 Balance 100 / 100 3890 / 3890 1100 / 1100 Weight 74.5 kg 74.5 kg Intake: IV 100 / 100 2900 / 2900 1100 / 1100 LR 1000 mL Inj 1,000 ML @ 0 mls 800 / 800 /hr .ROUTE .STK-MED ONE Rx#: [id number] NS Inj 1,000 ML @ 100 mls/hr IV 1999 / 1999 .CONT .Q10H [facility] Rx#:[id number] Unasyn Inj 1,500 MG In NS Inj 100 / 100 100 ML @ 200 mls/hr IV.SIG ONCE ONE Rx#:[id number] Unasyn Inj 3 GM In NS Inj 100 100 / 100 100 / 100 ML @ 200 mls/hr IV.SIG Q6H [facility] Rx#:[id number] Anesthesia Amount 900 / 900 Other 100 / 100 Output: Estimated Blood Loss 10 / 10 Other: # Voids 1 2 Date of Last Bowel Movement 06/26/18 Weight On Admission 74.5 kg Narrative: GENERAL: No distress. SKIN: Focused skin assessment warm/dry. HEAD: Atraumatic. Normocephalic. EYES: No injection or drainage per ENT: No nasal bleeding or discharge. Mucous membranes pink and moist. NECK: Trachea midline. No JVD. CARDIOVASCULAR: Regular rate and rhythm. No murmur appreciated. RESPIRATORY: No accessory muscle use. Clear to auscultation. Breath sounds equal bilaterally. GASTROINTESTINAL: Abdomen soft, nontender. No guarding or rigidity. Incisions noted. MUSCULOSKELETAL: No obvious deformities. No clubbing. No cyanosis. No edema. NEUROLOGICAL: Awake and alert. No obvious cranial nerve deficits. Motor grossly within normal limits. Normal speech. PSYCHIATRIC: Appropriate mood and affect; insight and judgment normal. Results - Labs CBC & Chem 7: 06/28/18 05:05 06/28/18 05:05 Laboratory Results - last 24 hr 06/27/18 06/27/18 06/27/18 13:00 13:00 13:00 CBC w Diff Auto diff final WBC 9.7 RBC 4.80 Hgb 14.1 Hct 42.3 MCV 88.2 MCH 29.4 MCHC 33.3 RDW 14.7 Plt Count 356 MPV 7.7 Neut % (Auto) 91.2 H Lymph % (Auto) 7.3 L [place] % (Auto) 1.1 Eos % (Auto) 0.1 Baso % (Auto) 0.3 Neut # (Auto) 8.9 H Lymph # (Auto) 0.7 L [place] # (Auto) 0.1 Eos # (Auto) 0.0 Baso # (Auto) 0.0 WBC Differential . Differential Comment . Sodium 139 Potassium 3.6 Chloride 106 Carbon Dioxide 26.5 Anion Gap 7 BUN 18 Creatinine 0.73 Estimated GFR 77 L Random Glucose 149 H Hemoglobin A1c Lactic Acid Calcium 8.8 Total Bilirubin 0.6 AST 40 H ALT 32 Alkaline Phosphatase 111 Total Creatine Kinase 69 Troponin I 0.03 Total Protein 8.3 H Albumin 4.0 Lipase 78 Ur Collection Type Urine Color Urine Clarity Urine pH Ur Specific [place] Urine Protein Urine Glucose (UA) Urine Ketones Urine Occult Blood Urine Nitrate Urine Bilirubin Urine Urobilinogen Ur Leukocyte Esterase Urine WBC Ur Squamous Epith Cells Ur Transition Epith Cell Amorphous Sediment Micro UA Comment Ur Microscopic Review Urine Culture Comments Urine Collection Time 06/27/18 06/27/18 06/27/18 13:00 13:10 13:10 CBC w Diff WBC RBC Hgb Hct MCV MCH MCHC RDW Plt Count MPV Neut % (Auto) Lymph % (Auto) [place] % (Auto) Eos % (Auto) Baso % (Auto) Neut # (Auto) Lymph # (Auto) [place] # (Auto) Eos # (Auto) Baso # (Auto) WBC Differential Differential Comment Sodium Potassium Chloride Carbon Dioxide Anion Gap BUN Creatinine Estimated GFR Random Glucose Hemoglobin A1c 6.2 H Lactic Acid 1.8 Calcium Total Bilirubin AST ALT Alkaline Phosphatase Total Creatine Kinase Troponin I Total Protein Albumin Lipase Ur Collection Type Clean catch Urine Color Yellow Urine Clarity Slightly cloudy Urine pH 7.5 Ur Specific [place] 1.015 Urine Protein Trace Urine Glucose (UA) Negative Urine Ketones 15 H Urine Occult Blood Negative Urine Nitrate Negative Urine Bilirubin Negative Urine Urobilinogen 1.0 Ur Leukocyte Esterase Negative Urine WBC 0-5 Ur Squamous Epith Cells 6-10 H Ur Transition Epith Cell 1-5 H Amorphous Sediment Moderate H Micro UA Comment Culture not ind Ur Microscopic Review Microscopic reviewed Urine Culture Comments Culture not ind Urine Collection Time 1320 06/28/18 06/28/18 05:05 05:05 CBC w Diff Auto diff final WBC 10.5 RBC 3.97 L Hgb 11.6 D Hct 35.0 MCV 88.2 MCH 29.1 MCHC 33.0 RDW 14.7 Plt Count 277 MPV 8.0 Neut % (Auto) 91.5 H Lymph % (Auto) 5.2 L [place] % (Auto) 3.1 Eos % (Auto) 0.1 Baso % (Auto) 0.1 Neut # (Auto) 9.7 H Lymph # (Auto) 0.5 L [place] # (Auto) 0.3 Eos # (Auto) 0.0 Baso # (Auto) 0.0 WBC Differential . Differential Comment . Sodium 143 Potassium 3.8 Chloride 110 H Carbon Dioxide 24.5 Anion Gap 9 BUN 14 Creatinine 0.67 Estimated GFR 85 L Random Glucose 144 H Hemoglobin A1c Lactic Acid Calcium 7.7 L D Total Bilirubin 2.2 H AST 832 H ALT 890 H Alkaline Phosphatase 145 H Total Creatine Kinase Troponin I Total Protein 6.0 L D Albumin 2.8 L D Lipase 50 L Ur Collection Type Urine Color Urine Clarity Urine pH Ur Specific [place] Urine Protein Urine Glucose (UA) Urine Ketones Urine Occult Blood Urine Nitrate Urine Bilirubin Urine Urobilinogen Ur Leukocyte Esterase Urine WBC Ur Squamous Epith Cells Ur Transition Epith Cell Amorphous Sediment Micro UA Comment Ur Microscopic Review Urine Culture Comments Urine Collection Time - Imaging Impressions Gallbladder Ultrasound 06/27/18 13:00 CONCLUSION: 1. Markedly distended gallbladder with evidence of internal debris and thickening in the fundus. Gallbladder mass needs to be excluded. 2. Mildly dilated common bile duct 3. No other significant abnormality. Assessment and Plan - Plan Abdominal pain Imaging indicative of distended gallbladder, mass needs to be excluded. Surgical consult appreciated. S/p cholecystectomy 06/27. LFTs elevated 06/28. -pain control with a bowel regimen. -antiemetics as needed. -continue IV Unasyn. -regular diet per surgery. -trend LFTs. HTN Well controlled at this time. -resume home meds. -pain control. Hyperglycemia A1c 6.2%. -lifestyle modifications. PPx: SCDs Discharge Planning: Await surgical clearance. Anticipate d/c in AM if LFTs improved
[2018-06-29] MEDS: Sod Chloride 0.9% Inj 1,000 ML IV.CONT SCH (00:19)
[2018-06-29] MEDS: Ampicillin/Sulbactam Inj 3 GM in Sodium Chloride 0.9% Inj 100 ML IV.SIG SCH ×2 (03:37→08:36)
[2018-06-29 07:30] LABS: Chloride 111 meq/L (98-107); Potassium 3.5 meq/L (3.5-5.1); Sodium 143 meq/L (136-145)
[2018-06-29 07:33] LABS: Baso % (Auto) 0.5 % (0.0-2.0); Eos # (Auto) 0.2 th/mm3 (0.0-0.4); Eos % (Auto) 2.2 % (0.0-4.0); Hematocrit 32.5 % (35.0-46.0); Hemoglobin 10.4 gm/dL (11.6-15.3); Lymph # (Auto) 1.2 th/mm3 (1.0-4.8); Mean Corpuscular HGB Conc 32.1 % (32.0-36.0); Mean Corpuscular Hemoglobin 28.5 pg (27.0-34.0); Mean Corpuscular Volume 88.7 fL (80.0-100.0); Mean Platelet Volume 7.6 fL (7.0-11.0); Mono # (Auto) 0.7 th/mm3 (0.0-0.9); Mono % (Auto) 8.9 % (0.0-8.0); Neut # (Auto) 5.4 th/mm3 (1.8-7.7); Neut % (Auto) 72.4 % (16.0-70.0); Platelet Count 240 th/mm3 (150-450); Red Blood Count 3.67 mil/mm3 (4.00-5.30); Red Cell Distribution Width 15.5 % (11.6-17.2); White Blood Count 7.5 th/mm3 (4.0-11.0)
[2018-06-29 07:52] LABS: Alanine Aminotransferase 455 U/L (10-53); Albumin 2.5 g/dL (3.4-5.0); Alkaline Phosphatase 111 U/L (45-117); Anion Gap 6 meq/L (5-15); Aspartate Aminotransferase 178 U/L (15-37); Blood Urea Nitrogen 14 mg/dL (7-18); Calcium 7.2 mg/dL (8.5-10.1); Carbon Dioxide 25.9 meq/L (21.0-32.0); Glomerular Filtration Rate Greater Than 89 mL/min (>89); Glucose,Random 102 mg/dL (74-106); Magnesium 2.2 mg/dL (1.5-2.5); Phosphorus 1.9 mg/dL (2.5-4.9); Total Protein 5.5 g/dL (6.4-8.2)
[2018-06-29] MEDS: Lisinopril 10 MG Tablet PO SCH (08:34)
[2018-06-29] MEDS: amLODIPine 10 MG Tablet PO SCH (08:35)
[2018-06-29] MEDS: Senna/Docusate Sodium 8.6/50 MG Tablet PO SCH (08:35)
[2018-06-29 08:47] VITALS: BP 150/70; PULSE 89; RESP 19; TEMP 97.8; O2SAT 93
--- NOTE | 2018-06-29 09:42 | P.DS ---
Date of admission: 06/28/18 12:33 Primary care physician: Simran Zaragoza MD Attending physician on discharge: Pedro Ricci Anticipated date of discharge: 06/29/18 Brief History from admission: The patient is a 77-year-old female with a past medical history of hypertension and hyperlipidemia who is presenting to the hospital with abdominal pain. The patient said that she has some food containing tomato sauce yesterday and she developed epigastric pain. She rated it as a 10 out of 10 in severity at the time and she says it is currently a 6 out of 10. She said she did have accompanying nausea and vomiting. She said she also ate some chicken, rice and beans last night. She has not eaten anything today. She is still nauseous. She says she has had this before. She says this abdominal pain comes and goes. She has not really been following with a doctor for it. She is currently hungry and looking forward to eating something. She would like to go home soon. DS: Diagnosis - Discharge Diagnosis (1) Acute cholecystitis Status: Acute (2) Biliary colic Status: Acute DS: Summary Hospital Course: 77-year-old female who originally presented to hospital because of abdominal discomfort after eating. Patient was found to have cholecystitis and patient was admitted the hospital with surgical consultation. Patient did undergo surgical intervention with Dr. London with laparoscopic cholecystectomy. Patient laboratory studies were followed and postop day 1 patient has significant elevation in her liver enzymes of unknown etiology. Is recommended by surgeon that the patient remained in the hospital overnight and repeat testing. Patient had repeat testing today with significant improvement. General surgery and again the patient is stable for discharge at this time. Patient will need to follow-up with surgeon in outpatient setting. Patient clinically stable this time. We will plan discharge accordingly. - Time Spent with Patient Total time spent providing and/or coordinating discharge services: Greater than 30 minutes - Quality: VTE Deep Vein Thrombosis/Pulmonary Embolism Present on Admission: No Exam Vital signs: Vital Signs 06/28/18 12:00 06/28/18 16:00 06/28/18 20:00 Temperature 97.6 F 98.0 F 97.4 F L Pulse Rate 72 72 58 L Respiratory Rate 17 18 16 Blood Pressure 100/58 L 105/70 109/55 L Pulse Oximetry 92 L 95 95 06/29/18 00:00 06/29/18 03:38 06/29/18 08:00 Temperature 97.3 F L 97.8 F Pulse Rate 66 89 Respiratory Rate 16 18 19 Blood Pressure 109/56 L 150/70 H Pulse Oximetry 94 L 93 L Intake & Output 06/28/18 06/29/18 06/29/18 18:59 06:59 18:59 Intake Total 2200 / 2200 1200 / 1200 Balance 2200 / 2200 1200 / 1200 Intake: IV 2200 / 2200 1200 / 1200 NS Inj 1,000 ML @ 100 mls/hr IV 1000 / 1000 1000 / 1000 .CONT .Q10H S[facility]O Rx#:[id number] Unasyn Inj 3 GM In NS Inj 100 200 / 200 200 / 200 ML @ 200 mls/hr IV.SIG Q6H [facility]O Rx#:[id number] Other: # Voids 2 1 Date of Last Bowel Movement 06/26/18 06/26/18 Narrative: GENERAL: Well-developed, well-nourished, in no acute distress. alert and orientated HEENT: Head is normocephalic without any lesions or masses noted. Facial features are symmetric. Eyes: Extraocular muscles are intact. Conjunctivae were clear. NECK: Supple without any masses. Trachea midline no deviation. No JVD, CARDIAC: Regular rhythm, regular rate. S1/S2 are heard. No murmurs gallops or rubs. LUNGS: Clear to auscultation bilaterally. No wheeze, rhonchi or rales. No use of accessory muscles on inspiration or expiration. ABDOMEN: Soft, nontender. Nondistended. Bowel sounds heard in all 4 quadrants. No organomegaly or masses. Negative rebound, negative guarding EXTREMITIES: No edema, pulses are equal bilaterally. No cyanosis or clubbing NEUROLOGY: Mood and affect appear appropriate. Cranial nerves II through XII grossly intact. Moving all extremities, speech is clear Results Procedures completed during hospitalization: PROCEDURE PERFORMED: Laparoscopic cholecystectomy. Pending studies at discharge: Pending at discharge 06/27/18 07:48 Surgical [PTH] Routine Labs on day of discharge: Labs from last 24 hours 06/29/18 06/29/18 06:50 06:50 CBC w Diff Auto diff final WBC 7.5 RBC 3.67 L Hgb 10.4 L Hct 32.5 L MCV 88.7 MCH 28.5 MCHC 32.1 RDW 15.5 Plt Count 240 MPV 7.6 Neut % (Auto) 72.4 H Lymph % (Auto) 16.0 [place] % (Auto) 8.9 H Eos % (Auto) 2.2 Baso % (Auto) 0.5 Neut # (Auto) 5.4 Lymph # (Auto) 1.2 [place] # (Auto) 0.7 Eos # (Auto) 0.2 Baso # (Auto) 0.0 WBC Differential . Differential Comment . Sodium 143 Potassium 3.5 Chloride 111 H Carbon Dioxide 25.9 Anion Gap 6 BUN 14 Creatinine 0.58 Estimated GFR Greater than 89 Random Glucose 102 Calcium 7.2 L* Prot Corrected Calcium 8.1 L Phosphorus 1.9 L Magnesium 2.2 Total Bilirubin 0.6 AST 178 H ALT 455 H Alkaline Phosphatase 111 Total Protein 5.5 L Albumin 2.5 L - Impressions ITS Impressions Gallbladder Ultrasound 06/27/18 13:00 CONCLUSION: 1. Markedly distended gallbladder with evidence of internal debris and thickening in the fundus. Gallbladder mass needs to be excluded. 2. Mildly dilated common bile duct 3. No other significant abnormality. Discharge Plan - Discharge Disposition Patient Disposition: 01 Discharge Home - Discharge Condition Condition: Stable - Discharge Order Discharge Orders: Discharge Order (Routine); Ordered 06/29/18 Ordered By: Can Handy - Discharge Details Anticipated Discharge Date: 06/29/18 - Physicians Team Primary Care Provider: Simran Zaragoza Attending Provider: Pedro Ricci Other Providers: Geo London MD
--- NOTE | 2018-06-29 10:29 | P.PNGS ---
Subjective Patient reports: no new complaints, feels better (labs trending down,), flatus Physical Exam Vital signs: Vital Signs 06/28/18 12:00 06/28/18 16:00 06/28/18 20:00 Temperature 97.6 F 98.0 F 97.4 F L Pulse Rate 72 72 58 L Respiratory Rate 17 18 16 Blood Pressure 100/58 L 105/70 109/55 L Pulse Oximetry 92 L 95 95 06/29/18 00:00 06/29/18 03:38 06/29/18 08:00 Temperature 97.3 F L 97.8 F Pulse Rate 66 89 Respiratory Rate 16 18 19 Blood Pressure 109/56 L 150/70 H Pulse Oximetry 94 L 93 L Intake & Output 06/28/18 06/29/18 06/29/18 18:59 06:59 18:59 Intake Total 2200 / 2200 1200 / 1200 Balance 2200 / 2200 1200 / 1200 Intake: IV 2200 / 2200 1200 / 1200 NS Inj 1,000 ML @ 100 mls/hr IV 1000 / 1000 1000 / 1000 .CONT .Q10H [facility] Rx#:[id number] Unasyn Inj 3 GM In NS Inj 100 200 / 200 200 / 200 ML @ 200 mls/hr IV.SIG Q6H [facility] Rx#:[id number] Other: # Voids 2 1 Date of Last Bowel Movement 06/26/18 06/26/18 - Routine Neck Exam Present: supple - Routine Respiratory Exam Present: CTA bilaterally - Routine Cardiovascular Exam Present: RRR - Routine Abdominal Exam Present: soft (incisional tenderness) Assessment and Plan - Assessment (1) Abdominal pain, acute, right upper quadrant Code(s): R10.11 - Right upper quadrant pain Status: Inactive Plan: 77 year old female with RUQ pain; cholecystitis -POD2 lap kenny -Liver enzymes resolving t bili normal reg diet oob stool softner nausea meds d/c home today
== END 2018-06-29 12:24 | disposition home or self-care (01) ==
LOC: PHEDA 11:02 → PHED 11:02 → PH3 16:30
PROVIDERS: ADMIT Family Medicine; ATTEND Family Medicine